=== PATIENT | female | born 1985 | race Caucasian/White ===

== ENCOUNTER 2017-07-07 23:48 | Inpatient (IN) | payer OTHER ==
[~2017-07-07] VITALS: Ht 165.1 cm; Wt 72.6 kg
[~2017-07-07 23:48] MED LIST: Acetaminophen/Codeine PO; Benzocaine 60 ML TP; DOCU240C67 PO; Ferrous Sulfate PO; HYDR-6018 PR; Ibuprofen PO; Lanolin TP; PREN-85 PO; TUCKS TOP
[2017-07-08] MEDS ORDERED: OXYTOCIN 30 UNIT/D5LR 500 ML 500 ML IV PRN ×2 (01:49→04:40)
[2017-07-08] MEDS ORDERED: FAMOTIDINE(*) 20MG/50ML PREMIX 50 ML IVPB PRN (01:49)
[2017-07-08 01:50] VITALS: BP 139/81; Ht 165.1 cm; Wt 72.6 kg
[2017-07-08] MEDS ORDERED: fentaNYL CITR 100 MCG/2 ML AMP IVP PRN (01:50)
[2017-07-08] MEDS ORDERED: LIDOCAINE/SOD BICARB 8.4% SYR SC PRN (01:50)
[2017-07-08] MEDS ORDERED: METOCLOPRAMIDE 10 MG/2 ML SDV IVP PRN (01:50)
[2017-07-08] MEDS ORDERED: LIDOCAINE 1% LOCAL 300 MG/30ML INJ PRN (01:50)
[2017-07-08] MEDS ORDERED: FLUSH 10 ML SYR IVP PRN (01:50)
[2017-07-08] MEDS ORDERED: cefOXitin/DEX(*) 2GM/50ML PREM 50 ML IVPB PRN (01:50)
[2017-07-08] MEDS ORDERED: BUPIVACAINE 0.5% INJ 30ML VIAL EPI PRN (02:00)
[2017-07-08] MEDS ORDERED: LIDO/EPI 2% MPF 1:200,000 20ML EPI PRN (02:00)
[2017-07-08] MEDS ORDERED: FENTANYL/ROPIVACAINE 100 ML BAG EPI PRN (02:00)
[2017-07-08] MEDS ORDERED: EPIDURAL KEYS XX PRN (02:00)
[2017-07-08] MEDS ORDERED: fentaNYL CITR 100 MCG/2 ML AMP IT PRN (02:00)
[2017-07-08] MEDS ORDERED: BUPIVACAINE 0.25% MPF INJ EPI PRN (02:00)
[2017-07-08] MEDS ORDERED: LIDOCAINE/PF 2% 200MG/10ML AMP 200 MG/10 ML AMPUL EPI PRN (02:00)
--- NOTE | 2017-07-08 02:37 | History & Physical ---
History of Present Illness Age of Patient: 32 : 3 Para or TPAL: 1011 EDC per LMP: Jul 07, 2017 EDC per U/S: Jul 07, 2017 Estimated Gestational Age: 40.1 Chief Complaint painful uterine contractions History of Present Illness Ms. Ruggiero is a 32yo at 40 and 1/7 weeks who presents to labor and delivery with c/o painful uterine contractions. She was seen in the office earlier today and was 3cm dilated at that time. She states that since her visit she started to have bloody-mucous discharge as well as painful uterine contractions. She denies gush of fluid. Reports normal movements. No other complaints. Denies KOENIG, nausea/emesis. Antepartum Course: 1. RH positive, received rhogam 04/20/17 2. pap positive for HR HPV, plan for pp pap 3. 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 Med Rec Home Meds Active Scripts [Lanolin] 7 GM OINT No Conflict Check, 0 GM TP PRN Y for DISCOMFORT FOR NURSING MOTHERS Prov:IKLO BLUNT MD 03/11/14 [Ibuprofen] 600 MG TAB No Conflict Check, 600 MG PO Q6H Y for PAIN, #30 TAB Prov:KILO BLUNT MD 03/11/14 Hydrocortisone (PROCTOZONE-HC) 30 Gm Cr, 0 GM GA BID Y for HEMORRHOIDS for 14 Days Prov:KILO BLUNT MD 03/11/14 Glycerin/Witch Shahnaz [place] (PREPARATION H) 1 Pkg Pad, 0 PKG TOP PRN Y for PAIN for 14 Days, PAD Prov:KILO BLUNT MD 03/11/14 [Ferrous Sulfate] 325 MG TAB No Conflict Check, 325 MG PO BIDBS, #60 TAB Prov:KILO BLUNT MD 03/11/14 Docusate Calcium (DOCUSATE CALCIUM) 240 Mg Cap, 240 MG PO BID for 14 Days, CAPSULE Prov:KILO BLUNT MD 03/11/14 [Benzocaine] 60 ML AERS No Conflict Check, 0 ML TP PRN Y for PAIN Prov:KILO BLUNT MD 03/11/14 [Acetaminophen/Codeine] 1 EACH TAB No Conflict Check, 1-2 EACH PO Q4H Y for PAIN , TAB Prov:KILO BLUNT MD 03/11/14 Reported Medications Vits W-Ca,Fe,Fa(<1MG) () 1 Each Tablet, 1 EACH PO DAILY, 0 Refills 06/11/09 Review of Systems Constitutional: No Fever, No Weight Loss, No Weight Gain, No Chills, No Night Sweats, No Other Neurological: No Syncope, No Confusion, No Weakness, No Dizziness, No Slurred Speech, No Other Eyes: No Vision Change, No Loss of Vision, No Photophobia, No Other ENT: No Hearing Loss, No Sinus Congestion, No Sore Throat, No Ear Ache, No Tinnitus, No Other Cardiovascular: No Chest Pain, No Palpitations, No Orthostatic Hypotension, No Other Respiratory: No Shortness of Breath, No Cough, No Wheezing, No Other Gastrointestinal: No Nausea, No Vomiting, No Diarrhea, No Dysphagia, No Constipation, No Early Satiety, No Hematemesis, No Hematochezia, No Melena, No Abdominal Pain, No Other Genitourinary: No Dysuria, No Hematuria, No Urinary Incontinence, No Other Musculoskeletal: No Pain, No Sprain, No Strain, No Impaired Mobility, No Other Psychiatric: No Depression, No Anxiety, No Other Exam General Exam Vital Signs afebrile VSS General Apperance: Alert/Awake/No Acute Distress Neuro: No Gross deficits ENT: Normal Cardiovascular: Regular Rate and Rhythm Respiratory: No Respiratory Distress, Clear to Auscultation Abdomen: Soft, Non-Tender, Non-Distended, Gravid - Non-Tender Extremities: No Cyanosis,Clubbing or Edema Integumentary: Skin Intact without Lesions or Rash Psychological: Alert & Oriented X3, Appropriate Mood & Affect Vaginal Discharge/Fluid?: Other (intact) Cervical Dialation: 4.5 Cervical Effacement (%): 90 Cervical Consistency: Soft Cervical Position: Mid Station: -2 Presentation: Vertex Uterine Contractions(Q min): 4 Uterine Contraction Strength: Moderate UC Resting Tone: Soft Fetus Feeling Movement?: Yes Estimated Weight(grams): 3800 Heart Tones: 125 Heart Tone Variabilty: Moderate FHT Accelerations: 15X15 FHT Decelerations: None FHT Category: I Medical Decision Making Data Points Result Diagram: 07/08/17 0230 Pre-Admit Course Medical Record Review: Yes VTE Prophylasis: Adult Deep Vein Thrombosis/Pulmonary: No Pharmacological Contraindicati: Surgical Contraindication Mechanical Contraindications: Pt at Low Risk for VTE Assessment and Plan Problems: (1) Spontaneous onset of labor Status: Acute Assessment & Plan: 32yo at 40 1/7 weeks, presents in active labor. GBS negative. testing reassuring. Desires epidural. -cefm/toco -IV hydration -cbc, type and screen -anticipate -anesthesia provider evaluating patient for epidural MAXINE SEPULVEDA MD Jul 08, 2017 02:37
[2017-07-08 02:41] LABS: PLATELET COUNT, AUTOMATED 267 K/uL (150-450)
[2017-07-08] MEDS: LR(*) 1000 ML BAG 1,000 ML IV SCH ×2 (02:53→02:54)
--- NOTE | 2017-07-08 03:44 | Procedure Note ---
Anesthetic Placement Note Anesthesia Plan: CSE Permit for Anesthesia Signed: Yes Anesthesia Technique: Patient Sitting Anesthesia Prep: Chlorhexidine Interspace: L 3-4 Local Anesthetic: 1% Lidocaine, 25 Gauge Needle Anesthesia Needle: 17g Touhmachelle/Schdavidff Anesthesia Attempts: 1 Loss of Resistance: Normal Saline Epidural Needle Placement: No CSF, No Blood, No Parasthesia Intrathecal Needle: 27 Gauge Pencan Cerebral Spinal Fluid: Yes, Clear Catheter Insertion (cm): 5 Catheter Type: Brito - Spring Wound Epidural Dressing: Tegaderm, Tape, Adhesive [place] Anesthesia Tray: Lot Number ([id number] ), Expiration Date (2018-02-18), Reference Number ([id number]) Comment: Patient tolerated procedure well. Almost immediate relief after intrathecal. Pump started at 8 ml/hr, 4 ml bolus Q 20 min. Loading dose of 4 ml given. Anesthesia Medications: Intrathecal Dose: mcg Fentanyl (15), mg Spinal Bupivicaine (1.75), Time (0302) Epidural Test Dose: 1.5 Lido/Epi (1:200,000), Dose - mL (5), Time (0303), Negative Epidural Loading Dose: 0.2% Ropivicaine, With Fentanyl 2mcg/ml, Dose - ml (4 ml ), Time (0318) Epidural Infusion: 0.2% Ropivicaine, With Fentanyl 2mcg/ml, Start Time: (0318) Epidural Pump Setting: Bolus Dose - mL (4 ml), Lockout - Minutes (20 min), Maintenance Rate - mL/hr (8 ml/hr) Complications: None KALYA SALINAS CRNA Jul 08, 2017 03:44
--- NOTE | 2017-07-08 04:40 | Labor Progress Note ---
Labor Subjective Progress Notes Subjective Patient reports feels much better after epidural placed. Feeling Movement?: Yes Vaginal Discharge/Fluid: Bloody Show Labor Pain: Comfortable Neurological: No Headache, No Other Eyes: No Visual Disturbances Labor Objective Vaginal Discharge/Fluid?: Bloody Show Cervical Dialation: 7 Cervical Effacement (%): 9 Cervical Consistency: Soft Cervical Position: Anterior Station: -2 Presentation: Vertex Uterine Contractions(Q min): 4 Uterine Contraction Strength: Mild UC Resting Tone: Soft Fetus Estimated Weight(grams): 3800 Heart Tones: 130 Heart Tone Variabilty: Moderate FHT Accelerations: 15X15 FHT Decelerations: None FHT Category: I General Exam General Appearance: Alert/Awake/No Acute Distress ENT: Normal Respiratory: Clear to Auscultation Abdomen: Soft, Non-Tender, Non-Distended Extremities: No Cyanosis,Clubbing or Edema Integumentary: Skin Intact without Lesions or Rash Psychological: Alert & Oriented X3, Appropriate Mood & Affect Other Result Diagram: 07/08/17 0230 Assessment and Plan Problems: (1) Spontaneous onset of labor Status: Acute Assessment & Plan: 32yo at 40 1/7 weeks, presented in active labor. GBS negative. testing reassuring. Desires epidural. Maternal WBC elevated at 24, may be related to stress. No maternal fever, no or maternal tachycardia. Will monitor for ss/sx chorioamnionitis. -start pitocin if contractions space out -AROM next exam, if remains possible -cefm/toco -anticipate MAXINE NAGY MD Jul 08, 2017 04:40
[2017-07-08] MEDS ORDERED: ACETAMINOPHEN 325 MG TAB PO PRN (07:05)
[2017-07-08] MEDS ORDERED: HYDROCORTISONE 2.5% CR 30GM TB PR PRN (07:05)
[2017-07-08] MEDS ORDERED: LANOLIN OINT 7 GM TUBE TP PRN (07:05)
[2017-07-08] MEDS ORDERED: GLYCERIN/WITCH HAZEL LEAF 1 PK TOP PRN (07:05)
[2017-07-08] MEDS ORDERED: BENZOCAINE 20% 60 ML BTL TP PRN (07:05)
[2017-07-08] MEDS ORDERED: MAGNESIUM HYDROXIDE* 30ML UDCP PO PRN (07:05)
[2017-07-08] MEDS ORDERED: HYDROmorphone HCL 2 MG TAB PO PRN (07:05)
--- NOTE | 2017-07-08 07:14 | OB Delivery Note ---
Delivery Note Vaginal Delivery Type: Spont. Vaginal Delivery Delivery Date: Jul 08, 2017 Delivery Time: 06:52 Estimated Gestational Age(wks): 40.1 Length of Labor Stage I (hrs): 7 Length of Labor Stage II (hrs): 0.05 Labor Stage III (minutes): 5 Delivery Anesthesia: Epidural Infant Sex: Female Apgars: 1 Minute (8), 5 Minute (9) Repair Needed: Other (none) Estimated Blood Loss: 300 Delivery Complications: Nuchal Cord (reduced, body cord) Notes: Ms. Ruggiero was admitted in active labor at 02:00, 4-5cm dilated with reassuring testing. She received an epidural for pain control. She continued to contract, and had spontaneous rupture of membranes at 06:25, clear fluid. She progressed to fully dilated and 2+ station. After approximately 5 minutes of pushing, a vigorous female infant was delivered in the [place] position, body cord was noted and reduced at perineum. The infants nose and mouth were suctioned with the bulb syringe, and she was handed to her mother. After pulsations ceased, the cord was doubly cut and clamped and a portion of cord blood was obtained as per protocol. The placenta delivered spontaneously and intact, the uterus contracted well with pitocin and massage. The vulva, vagina , and perineum were inspected and found to be intact. EBL was 300cc. Apgars were 8 and 9. Weight 3772g. MAXINE SEPULVEDA MD Jul 08, 2017 07:14
--- NOTE | 2017-07-08 07:37 | Anesthesia OB Pre-Anes Eval ---
History of Present Illness Anesthesia Start Date: Jul 08, 2017 Anesthesia Start Time: 02:49 OB Anesthesia Diagnosis: spontaneous labor Complications: None. EDC: Jul 07, 2017 : 3 Para: 1 Vital Signs: 99.7 76 20 139/81 Pain Ratin Result Diagram: 07/08/17 0230 Height (Inches): 65.00 Weight (Pounds): 160 BMI Calculated: 26.62 Past Medical History Medical History: no pertinent history Surgical History: other Previous Anesthesia: general Attended Childbirth Classes?: No Hx Anesthesia Reactions: No Hx Family Anesthesia Reaction: No Home Meds Active Scripts [Lanolin] 7 GM OINT No Conflict Check, 0 GM TP PRN Y for DISCOMFORT FOR NURSING MOTHERS Prov:KILO BLUNT MD 03/11/14 [Ibuprofen] 600 MG TAB No Conflict Check, 600 MG PO Q6H Y for PAIN, #30 TAB Prov:KILO BLUNT MD 03/11/14 Hydrocortisone (PROCTOZONE-HC) 30 Gm Cr, 0 GM OR BID Y for HEMORRHOIDS for 14 Days Prov:KILO BLUNT MD 03/11/14 Glycerin/Witch Shahnaz [place] (PREPARATION H) 1 Pkg Pad, 0 PKG TOP PRN Y for PAIN for 14 Days, PAD Prov:KILO BLUNT MD 03/11/14 [Ferrous Sulfate] 325 MG TAB No Conflict Check, 325 MG PO BIDBS, #60 TAB Prov:KILO BLUNT MD 03/11/14 Docusate Calcium (DOCUSATE CALCIUM) 240 Mg Cap, 240 MG PO BID for 14 Days, CAPSULE Prov:KILO BLUNT MD 03/11/14 [Benzocaine] 60 ML AERS No Conflict Check, 0 ML TP PRN Y for PAIN Prov:KILO BLUNT MD 03/11/14 [Acetaminophen/Codeine] 1 EACH TAB No Conflict Check, 1-2 EACH PO Q4H Y for PAIN , TAB Prov:KILO BLUNT MD 03/11/14 Reported Medications Vits W-Ca,Fe,Fa(<1MG) () 1 Each Tablet, 1 EACH PO DAILY, 0 Refills 06/11/09 Allergies: Coded Allergies: No Known Drug Allergies (Verified , 02/25/14) Anesthesia OB ROS Neurological: No migraines/headaches, No seizures, No neuropathy, No other ENT: Denies Tooth caps, Denies Loose teeth, Denies Chipped teeth, Denies Dentures, Denies Bridges, Denies Retainers, Denies Veneers, Denies Implants, Denies Tongue ring, Denies Other Pulmonary: No asthma, No smoker (pks/day/yrs), No other Airway Class: ll Cardiovascular ROS: No edema, No arrhythmia, No other Last Solids Date: Jul 07, 2017 Last Solids Time: 18:30 ROS: No Herpes, No STD(s), No Liver Disease, No Renal Disease, No Other Endocrine ROS: No diabetes, No gestational diabetes, No thyroid disorder, No other Musculoskeletal ROS: No low back pain, No low back injury, No scoliosis, No other ASA Classification: 2 Assessment and Plan Anesthesia Plan: CSE Assessment Patient comfortable throughout labor and delivery. Epidural infusion stopped. Staff to discontinue epidural catheter. Total of 35.5 ml of solution infused. No further bolus or narcotic needed. Anesthesia Stop Day: Jul 08, 2017 Anesthesia Stop Time: 07:17 KAYLA SALINAS CRNA Jul 08, 2017 03:34
[2017-07-08] MEDS: IBUPROFEN 800 MG TAB PO SCH ×2 (08:56→17:03)
[2017-07-08] MEDS: DOCUSATE CALCIUM 240 MG CAP PO SCH ×2 (08:56→20:33)
[2017-07-08] MEDS ORDERED: INFLUENZA VIRUS VAC 0.5 ML SYR IM ONLY ONE (10:00)
[2017-07-08] MEDS ORDERED: MEASLES,MUMP,RUBELLA VAC 0.5ML SUBQ ONE (10:00)
[2017-07-08] MEDS ORDERED: DIPHTH/TETANUS/ACEL. PERTUSSIS IM ONLY ONE (10:00)
[2017-07-08] MEDS ORDERED: IBUP800T37 PO (12:42)
--- NOTE | 2017-07-08 12:42 | Anesthesia Post Eval Note ---
Anesthesia Post Eval Note Pt able to participate in Eval: Yes Cardiovascular Status: Satisfactory Respiratory Status: Satisfactory Pain Managment: Satisfactory PO Nausea/Vomiting: Satisfactory Temperature Management: Satisfactory Mental Status: Satisfactory Post-Op Hydration Status: Satisfactory Anesthesia Type: CSE Anesthesia Tolerance: Catheter removed by staff. Patient reports some lingering numbness over right thigh that has been receding. Has not been up to ambulate yet. Encourage patient to be sure not to ambulate without assistance. Well-controlled pain. KAYLA SALINAS CRNA Jul 08, 2017 12:41
[2017-07-08 13:00] VITALS: BP 128/59
[2017-07-08 17:00] VITALS: BP 117/64
[2017-07-08 18:55] VITALS: BP 111/58
[2017-07-09 00:21] VITALS: BP 110/60
[2017-07-09] MEDS: IBUPROFEN 800 MG TAB PO SCH ×3 (00:23→16:35)
[2017-07-09 04:36] VITALS: BP 120/62
[2017-07-09 08:30] VITALS: BP 104/64
--- NOTE | 2017-07-09 09:42 | OB/GYN Progress Note ---
OB Subjective Progress Notes Subjective Patient reports that she feels great! , using nipple shield. No pain, mild cramping with nursing. GI: POS Flatus, NEG Nausea, NEG Vomiting, NEG Bowel Movement : Voiding Well, Vaginal Bleeding, Moderate Pain: Comfortable, Not Requiring Pain Meds Neurological: No Headache, No Other Eyes: No Visual Disturbances OB Objective Physical Exam Vital Signs Date Time Temp Pulse Resp B/P (MAP) Pulse Ox O2 Delivery O2 Flow Rate FiO2 07/09/17 04:36 97.5 75 18 120/62 (81) Room Air 07/08/17 01:50 98 General Appearance: Alert/Awake/No Acute Distress Neurological: No Gross deficits ENT: Normal Respiratory: Clear to Auscultation Abdomen: Soft, Non-Tender, Non-Distended, Fundus Firm, Non-Tender Extremities: No Cyanosis,Clubbing or Edema Integumentary: Skin Intact without Lesions or Rash Psychological: Alert & Oriented X3, Appropriate Mood & Affect Result Diagram: 07/09/17 0550 Assessment and Plan Problems: (1) Spontaneous onset of labor Status: Resolved (2) care and examination immediately after delivery Status: Acute Assessment & Plan: 32yo PPD 1 s/p . Doing well. with nipple shield. No pain. Baby girl under bili lights. -possible d/c home this afternoon, depending on infant -full discharge instructions given -RTC 6 weeks pp MAXINE SEPULVEDA MD Jul 09, 2017 09:42
[2017-07-09] MEDS: DOCUSATE CALCIUM 240 MG CAP PO SCH (10:10)
[2017-07-09 11:00] VITALS: BP 108/64
[2017-07-09 14:44] VITALS: BP 112/67
--- NOTE | 2017-07-09 15:52 | OB/GYN Discharge Summary ---
Discharge Summary Reason for Hosp/Final Diag: (1) Spontaneous onset of labor Status: Resolved (2) care and examination immediately after delivery Status: Acute Hospital Course & Plan: 32yo PPD 1 s/p . Doing well. with nipple shield. No pain. Baby girl under bili lights. -baby staying tonight under bili lights, patient discharged to rooming-in status -full discharge instructions given -RTC 6 weeks pp [place] Vital Signs Vital Signs Date Time Temp Pulse Resp B/P (MAP) Pulse Ox O2 Delivery O2 Flow Rate FiO2 07/09/17 11:00 99.6 73 16 108/64 (79) Room Air 07/08/17 01:50 98 Weight (Pounds): 160 Result Diagram: 07/09/17 0550 Condition: Improved Discharge: Home Home Meds Active Scripts Ibuprofen (IBUPROFEN) 800 Mg Tablet, 800 MG PO Q8H for 30 Days, #60 TAB 1 Refill Prov:MAXINE SEPULVEDA MD 07/08/17 [Lanolin] 7 GM OINT No Conflict Check, 0 GM TP PRN Y for DISCOMFORT FOR NURSING MOTHERS Prov:KILO BLUNT MD 03/11/14 [Ibuprofen] 600 MG TAB No Conflict Check, 600 MG PO Q6H Y for PAIN, #30 TAB Prov:KILO BLUNT MD 03/11/14 Hydrocortisone (PROCTOZONE-HC) 30 Gm Cr, 0 GM LA BID Y for HEMORRHOIDS for 14 Days Prov:KILO BLUNT MD 03/11/14 Glycerin/Witch Shahnaz [place] (PREPARATION H) 1 Pkg Pad, 0 PKG TOP PRN Y for PAIN for 14 Days, PAD Prov:KILO BLUNT MD 03/11/14 [Ferrous Sulfate] 325 MG TAB No Conflict Check, 325 MG PO BIDBS, #60 TAB Prov:KILO BLUNT MD 03/11/14 Docusate Calcium (DOCUSATE CALCIUM) 240 Mg Cap, 240 MG PO BID for 14 Days, CAPSULE Prov:KILO BLUNT MD 03/11/14 [Benzocaine] 60 ML AERS No Conflict Check, 0 ML TP PRN Y for PAIN Prov:KILO BLUNT MD 03/11/14 [Acetaminophen/Codeine] 1 EACH TAB No Conflict Check, 1-2 EACH PO Q4H Y for PAIN , TAB Prov:KILO BLUNT MD 03/11/14 Reported Medications Vits W-Ca,Fe,Fa(<1MG) () 1 Each Tablet, 1 EACH PO DAILY, 0 Refills 06/11/09 [facility] [phone] Follow up in: 6 wks PP or PO Discharge Diet: As Tolerates Discharge Activity: Pelvic Rest MAXINE SEPULVEDA MD Jul 09, 2017 15:52
== END 2017-07-09 16:30 | disposition home or self-care (01) | DRG 775 ==
LOC: OB 07-08 01:31
PROVIDERS: ADMIT Obstetrics & Gynecology; ATTEND Obstetrics & Gynecology
PROC: 10E0XZZ Delivery of Products of Conception, External Approach (ICD-10-PCS; principal; 2017-07-08)
PROC: 3E0334Z Introduction of Serum, Toxoid and Vaccine into Peripheral Vein, Percutaneous Approach (ICD-10-PCS; 2017-07-08)
DX: O69.81X0 Labor and delivery complicated by cord around neck, without compression, not applicable or unspecified (principal); O36.0130 Maternal care for anti-D [Rh] antibodies, third trimester, not applicable or unspecified; Z37.0 Single live birth; Z3A.40 40 weeks gestation of pregnancy
CPT/HCPCS: 36415; 85025; 85027; 85461; 86850; 86870; 86900; 86901; J2590; J2791; J7120

== ENCOUNTER → 2017-12-11 | Outpatient (CLI) | payer OTHER ==
[2017-07-08 01:50] VITALS: BMI 31.8
[~2017-12-11] MED LIST changes: +IBUP800T37 PO; +MULT-865 PO; +SERT-1 PO; +SERT25TA87 PO
[2017-12-11 09:49] LABS: PLATELET COUNT, AUTOMATED 207 K/uL (150-450)
== END ==
LOC: LAB 09:33
PROVIDERS: ATTEND Obstetrics & Gynecology
DX: F32.9 Major depressive disorder, single episode, unspecified (principal); R53.83 Other fatigue
CPT/HCPCS: 36415; 84443; 85025